=== PATIENT | male | born 1955 | race Caucasian/White ===

== ENCOUNTER 2018-04-26 05:12 | Emergency (ER) | payer SELFPAY ==
[2018-04-26] MEDS: HYDROCODONE/APAP (5/325) TAB PO (06:42)
[2018-04-26] MEDS: ONDANSETRON (ODT) 4 MG TAB ODT (06:42)
== END 2018-04-26 07:40 | disposition home or self-care (01) ==
LOC: FTE 05:12
DX: M25.562 Pain in left knee (principal); I10 Essential (primary) hypertension; F17.210 Nicotine dependence, cigarettes, uncomplicated
CPT/HCPCS: 29505; 73562; 99283-25

== ENCOUNTER → 2019-01-12 | Emergency (ER) | payer MEDICAID ==
[2019-01-12] MEDS: AZITHROMYCIN 250 MG TAB PO (16:03)
[2019-01-12] MEDS: BENZONATATE 100 MG CAP PO (16:06)
== END | disposition home or self-care (01) ==
LOC: FTE 15:16
DX: J40 Bronchitis, not specified as acute or chronic (principal); I10 Essential (primary) hypertension; F17.210 Nicotine dependence, cigarettes, uncomplicated
CPT/HCPCS: 71045; 99283-25